=== PATIENT | female | born 1990 | race Caucasian/White ===

== ENCOUNTER 2020-10-05 17:10 | Observation (INO) | payer BC, SELFPAY ==
[2020-10-05] VITALS (31 sets, daily range): BP systolic 111–116; BP diastolic 53–55; PULSE 102–134; TEMP 36.6–37.4; O2SAT 97–100; BMI 25.4
--- NOTE | 2020-10-05 17:10 | OBADM ---
This patient, Brittney Obrien, admitted to the OB room Labor/Delivery/Recovery 110 for observation. Patient/family oriented to hospital policies and general routines including ID bracelet, bed and alarms, visiting hours, pain management, procedures, bathroom and other care routines, personal items, smoking policy, room service/diet, and visiting hours. Patient/Family are encouraged to report perceived risks to care and to ask questions if they do not understand what they are told or what they should do.
--- NOTE | 2020-10-05 17:29 | PC.NURSE ---
Addendum entered by Tariq Perez RN 10/05/20 17:41: time of phone call was [phone] Original Note: Updated Dr. Canada on patient arrival to OB unit for emergency department with complaint of pressure and possible bag of membranes out of vagina while voiding. Patient states membranes are not longer out of vagina. Patient reports pressure that was resolved after voiding. VSS. FHT 140's via doppler. No contractions noted via toco monitor or per patient. Abdomen palpates soft. Order for SVE given.
--- NOTE | 2020-10-05 17:29 | PC.NURSE ---
Dr. Canada notified of SVE 4-5/thin. No present parts noted. No contractions noted via TOCO or per patient. Dr. Canada coming in.
--- NOTE | 2020-10-05 19:33 | PM.IMHP ---
H&P: HPI History of Present Illness Date/Time: 10/05/20 19:33 Chief complaint: Bulging Narrative: Brittney Obrien is a 29 year old female at 19w1d who presents with previable cervical dilation. Pt reports that she felt pressure while trying to have a bowel movement. She looked down and noted a clear sac protruding from the vaginal introitus. Pt immediately presented to the hospital. She denies any contractions. This is an IVF with embryo transfer on 06/12/20. Pt's is complicated by history of delivery at 26w from cervical insufficiency that resulted in a neonatall demise. Pt denies any abnormal vaginal discharge, dysuria, or bleeding. Review of Systems Constitutional: Constitutional: Reports no additional constitutional complaints Eyes: Eyes: Reports no additional eye complaints Cardiovascular: Cardiovascular: Reports no additional cardiovascular complaints Respiratory: Respiratory: Reports no additional respiratory complaints Gastrointestinal: Gastrointestinal: Reports no additional gastrointestinal complaints Genitourinary: Genitourinary: Reports as per HPI Musculoskeletal: Musculoskeletal: Reports no additional musculoskeletal complaints Psychiatric: Psychiatric: Reports no additional psychiatric complaints [facility] Family History Family History (Updated 04/03/15 @ 15:33 by DOCTOR UNKNOWN) Other Diabetes mellitus Social History Social History Smoking status: Never smoker Alcohol intake: current Meds Home Medications and Allergies Home Medications Medication Instructions Recorded Confirmed Type aspirin [Adult Low Dose Aspirin] 81 mg PO DAILY 10/05/20 10/05/20 History prenat.vits,bernardo,[id number] 1 tablet PO DAILY 10/05/20 10/05/20 History [ Vitamin] progesterone micronized 200 mg PO DAILY 10/05/20 10/05/20 History Allergies Allergy/AdvReac Type Severity Reaction Status Date / Time nifedipine Allergy Unknown Verified 04/03/15 15:41 Vital Signs Vital Signs - 24 hr 10/05/20 17:11 10/05/20 17:31 10/05/20 17:33 Temperature 36.6 C Pulse Rate 116 H Blood Pressure 111/55 L Pulse Oximetry 100 10/05/20 17:38 10/05/20 17:43 10/05/20 17:48 Temperature Pulse Rate Blood Pressure Pulse Oximetry 100 99 100 10/05/20 17:53 10/05/20 17:58 10/05/20 18:03 Temperature Pulse Rate Blood Pressure Pulse Oximetry 100 100 98 10/05/20 18:08 10/05/20 18:13 10/05/20 18:18 Temperature Pulse Rate Blood Pressure Pulse Oximetry 100 100 100 10/05/20 18:23 10/05/20 18:28 10/05/20 18:33 Temperature Pulse Rate Blood Pressure Pulse Oximetry 99 98 100 10/05/20 18:38 10/05/20 18:43 10/05/20 18:48 Temperature Pulse Rate Blood Pressure Pulse Oximetry 100 99 99 10/05/20 18:53 10/05/20 18:58 10/05/20 19:03 Temperature Pulse Rate Blood Pressure Pulse Oximetry 99 100 100 10/05/20 19:08 10/05/20 19:13 10/05/20 19:18 Temperature Pulse Rate Blood Pressure Pulse Oximetry 99 100 100 Exam Const: General: comfortable and anxious Nutritional Appearance: average body habitus Orientation/consciousness: patient oriented x3 Limitations: no limitations HENMT: Head: normal to inspection Eyes: General: appearance normal, both eyes and all related structures Neck: Neck: normal visual inspection Chest: Chest palpation & inspection: normal inspection of the chest Resp: Effort & Inspection: normal respiratory effort and able to speak in complete sentences Auscultation: clear to auscultation bilaterally Cardio: Rate: regular rate Rhythm: regular rhythm GI: Inspection: normal to inspection GI Palp: No abdominal tenderness and No Rebound tenderness present Other: Gravid, fundal height equal to dates : External Female Exam: normal external appearance OB/external & speculum: external exam normal and Cervical os open; no bleeding Manual OB Exam: dila
[2020-10-05] MEDS: AMPICILLIN 2 GM/NS 100 ML 2 GM/100 ML BAG IVPB (19:39)
[2020-10-05] MEDS: AZITHROMYCIN 250 MG TABLET 1000 MG PO (19:48)
[2020-10-05] MEDS: INDOMETHACIN 50 MG SUPP.RECT 100 MG RECTAL (19:50)
--- NOTE | 2020-10-16 08:15 | PM.OBTRLD ---
OB - Triage/Final Diagnosis Visit Information Date of evaluation: 10/05/20 Reason for evaluation: other (cervical insufficienty, cervical dilation )
== END 2020-10-05 20:20 | disposition other institution (70) ==
LOC: ANHLDR 10-08 12:32
PROVIDERS: Admitting Provider Student in an Organized Health Care Education/Training Program; PCP Obstetrics & Gynecology; Visit Provider Student in an Organized Health Care Education/Training Program
DX: O09.892 Supervision of other high risk pregnancies, second trimester (principal); O34.32 Maternal care for cervical incompetence, second trimester; Z3A.00 Weeks of gestation of pregnancy not specified; O09.819 Supervision of pregnancy resulting from assisted reproductive technology, unspecified trimester; Z87.59 Personal history of other complications of pregnancy, childbirth and the puerperium
CPT/HCPCS: 96365; A9270; G0378; G0379; J0290

== ENCOUNTER 2020-10-17 18:35 | Inpatient (IN) | payer BC, SELFPAY ==
[2020-10-17] VITALS (13 sets, daily range): BP systolic 98–123; BP diastolic 56–67; PULSE 101–129; TEMP 36.6; BMI 25.0
[2020-10-17] MEDS: fentaNYL CITRATE INJ (*CRX) 100 MCG/2 ML VIAL 50 MCG IV PUSH (19:15)
[2020-10-17] MEDS: LACTATED RINGERS 1,000 ML 100 ML IV CONT (19:15)
--- NOTE | 2020-10-17 19:29 | PM.IMHP ---
H&P: HPI History of Present Illness Date/Time: 10/17/20 19:29 Chief complaint: Contractions Narrative: Brittney Obrien is a 29 year old female at 21w0d who presents in labor. Pt has had known cervical incompetence. She initially presented at 19w1d and was found to be 4-5cm dilated with hour glassing membranes to the introitus. Pt was transferred to [place] for possible rescue cerclage. Pt remained stable at [place] and was noted to be ruptured at attempt to place cerclage. The procedure was then aborted and expectant management was resumed. Pt reports she started having contractions this evening. She reports increased rectal pressure and bleeding. Review of Systems Cardiovascular: Cardiovascular: Denies chest pain, Denies leg edema, Denies palpitations, Denies dyspnea and Denies dyspnea on exertion Respiratory: Respiratory: Denies cough, Denies dyspnea and Denies dyspnea on exertion Gastrointestinal: Gastrointestinal: Denies abdominal pain, Denies constipation, Denies diarrhea, Denies nausea and Denies vomiting Genitourinary: Genitourinary: Denies hematuria, Denies urinary frequency, Denies dysuria, Denies pelvic pain, Denies urinary incontinence and Denies vaginal discharge Neurologic: Reports system reviewed and no additional complaints, except as documented Psychiatric: Psychiatric: Reports no additional psychiatric complaints Endocrine: Endocrine: Denies palpitations [facility] Family History Family History (Updated 04/03/15 @ 15:33 by DOCTOR UNKNOWN) Other Diabetes mellitus Social History Social History Smoking status: Never smoker Alcohol intake: current Meds Home Medications and Allergies Home Medications Medication Instructions Recorded Confirmed Type aspirin 81 mg PO DAILY 10/05/20 10/05/20 History prenat.vits,bernardo,[id number] 1 tablet PO DAILY 10/05/20 10/05/20 History progesterone micronized 200 mg PO DAILY 10/05/20 10/05/20 History Allergies Allergy/AdvReac Type Severity Reaction Status Date / Time nifedipine Allergy Unknown Verified 04/03/15 15:41 Exam Const: General: anxious Eyes: EOM: EOMs intact bilaterally Neck: Neck: supple Thyroid: thyroid normal Chest: Breast/axilla inspection: normal inspection of the breasts Breast/axilla palpation: normal palpation of the breasts, normal palpation of the axillae and no axillary lymphadenopathy Resp: Effort & Inspection: normal respiratory effort Auscultation: clear to auscultation bilaterally Cardio: Rate: regular rate Rhythm: regular rhythm GI: Inspection: non-distended GI Palp: Yes Soft to palpation, No Tenderness to palpation present (GI) and No Guarding due to palpation present (GI) Auscultation: normal bowel sounds : External Female Exam: normal external appearance Speculum Exam - Vagina: normal vaginal discharge and vaginal bleeding Speculum Exam - Cervix: nontender OB/external & speculum: vaginal bleeding Manual OB Exam: dilated and other (fetus noted in the vagina with only the head in utero) Skin: General skin exam: normal color and no rashes or lesions noted Neuro: Cognition (Neuro): normal cognition Speech: normal speech Extrem: General: normal to inspection and no edema Psych: Mental Status: mental status grossly normal Affect: normal affect Assessment and Plan Assessment and plan (1) History of delivery, currently in second trimester: Code(s): O09.892 - Supervision of other high risk pregnancies, second trimester Status: Acute Assessment and Plan: previous delivery at 26w secondary to cervical incompetence resulting in demise (2) Cervical insufficiency during in second trimester, antepartum: Code(s): O34.32 - Maternal care for cervical incompetence, second trimester Status: Acute Assessment and Plan: pt dx with cervical insufficiency at 19w1d presents today with contractions and fetus i
[2020-10-17] MEDS: OXYTOCIN 30 UNITS/NS 500 ML 30 UNITS/500 ML BAG 999 UNITS IV CONT (20:01)
[2020-10-17 20:11] LABS: Basophils Percent Auto 0.1 % (0.2-1.2); Eosinophils Percent Auto 0.1 % (0-4.4); Hemoglobin 10.5 g/dL (12.0-15.0); Immature Granulocyte Percent A 0.6 % (0-0.5); Lymphocytes Absolute Auto 1.94 K/mm3 (0.9-3.2); Lymphocytes Percent Auto 12.1 % (18.3-44.2); Mean Corpuscular HGB Conc 33.9 g/dl (32-36); Mean Corpuscular Volume 88.6 fl (80-100); Mean Platelet Volume 9.7 fl (7.4-10.4); Monocytes Absolute Auto 0.8 K/mm3 (0.1-0.6); Monocytes Percent Auto 5.1 % (2.6-8.5); Neutrophils Absolute Auto 13.1 K/mm3 (1.3-6.7); Platelet Count Result 323 k/mm3 (150-375); Red Cell Distribution Width 12.4 % (11.5-14.5)
--- NOTE | 2020-10-17 20:12 | P.PCNOB_ITS ---
OB - Delivery Note Procedure Procedure: Patient pushed for a spontaneous vaginal delivery. The fetus was delivered en caul along with the placenta.The fetus was noted to have minimal movement upon delivery. The fetus was placed in a blanket. The membranes were removed and the cord was clamped and cut. The perineum was inspected and there were no lacerations noted. The uterus was noted to be boggy. IV pitocin was started as well as bimanual massage. The uterus was noted to be firm with good hemostasis after inteventions. The fetus was wrapped in a receiving blanket and placed on the mother's chest. The fetus was noted to have a pulse at that time. The mother and father were grieving appropriately and condolences were given. events: Labor < 37 Weeks and Premature Rupture of Membrane Intrapartal events: None Induction method: none Delivery monitor: none Route of delivery: Episiotomy description: None Laceration Description: None Specimen: Yes (Placenta) Quantitative Blood Loss: 250 Anesthesia type: None Disposition: floor () Complications: No immediate complications [facility] Date of : 10/17/20 Time of : 19:57 Weeks of gestation at delivery: 21 Infant gender: Male presentation: breech Placenta delivery description: Spontaneous score one minute: 2 score five minutes: 1
[2020-10-18 00:58] VITALS: BP 96/51; PULSE 99
--- NOTE | 2020-10-18 01:15 | PC.NURSE ---
Chief Ophthalmic Technician called back. Information given. Baby can be released to home. Baby to nursury at parents request. Unsure if they will want to hold baby again. Baby placed on cuddle cot.
--- NOTE | 2020-10-18 02:30 | PC.NURSE ---
Addendum entered by Dawood Rosales RN 10/18/20 02:31: NOTE SHOULD BE TIMES 1830. Original Note: SROM 10/07 at 19 weeks. Has had parts in vagina past week. Arrived having contractions which have increased in intensity past hour. Fetus noted to be partially in vagina on arrival.
--- NOTE | 2020-10-18 02:32 | PC.NURSE ---
Anjelica Kirk RN, Share Coordinator notified of pt admission and delivery.
--- NOTE | 2020-10-18 05:00 | PC.NURSE ---
Jeremias Kirk in dept. from [facility] will come to see pt when she wakes this AM. Pt does not want baby to have autopsy. Pt states wants baby to go to home for cremation. Pt declines any path review in lab. Pt states desires to use home here in [place]. [facility] home notified.
[2020-10-18 05:04] VITALS: BP 93/59; PULSE 88
[2020-10-18 05:05] LABS: Basophils Percent Auto 0.2 % (0.2-1.2); Eosinophils Percent Auto 0.2 % (0-4.4); Hematocrit 25.8 % (37.0-47.0); Hemoglobin 8.8 g/dL (12.0-15.0); Immature Granulocyte Absolute 0.04 K/mm3 (0.00-0.031); Immature Granulocyte Percent A 0.3 % (0-0.5); Lymphocytes Absolute Auto 2.08 K/mm3 (0.9-3.2); Lymphocytes Percent Auto 15.3 % (18.3-44.2); Mean Corpuscular HGB Conc 34.1 g/dl (32-36); Mean Corpuscular Hemoglobin 30.3 pg (26-34); Mean Platelet Volume 9.5 fl (7.4-10.4); Monocytes Absolute Auto 0.6 K/mm3 (0.1-0.6); Monocytes Percent Auto 4.5 % (2.6-8.5); Neutrophils Absolute Auto 10.8 K/mm3 (1.3-6.7); Neutrophils Percent Auto 79.5 % (45.5-73.1); Platelet Count Result 254 k/mm3 (150-375); Red Cell Distribution Width 12.4 % (11.5-14.5); White Blood Count 13.6 K/mm3 (4.5-10.0)
[2020-10-18 05:30] VITALS: TEMP 36.4
--- NOTE | 2020-10-18 05:45 | PC.NURSE ---
Pt has been resting quietly. Denies any pain. Baby remains in nursery on cuddle cot. Pt aware. Sig other at bedside. Both pt and significant other are tearful at times. Advised pt and significant other to call if they need anything or would like baby to come back to room.
--- NOTE | 2020-10-18 07:11 | PM.DS ---
DS: Admitting Diagnosis Admitting Diagnosis Admitting Diagnosis: Contractions 21 weeks pre term prone prolonged DS: Summary Time Spent with Patient Time attestation: Total time spent providing and/or coordinating discharge services: The patient was admitted at 21 weeks with known rupture of membranes and feet had been exposed in the vagina. heart tones were present she progressed rapidly and delivered a 21 week fetus. Her hospital course was unremarkable. She remained afebrile she was voiding without difficulty passing gas and eating regular diet. She remained afebrile. Her condition upon discharge was stable Exam Const: General: no acute distress Eyes: General: appearance normal, both eyes and all related structures Neck: Neck: supple and no JVD Thyroid: thyroid normal Resp: Effort & Inspection: normal respiratory effort Auscultation: clear to auscultation bilaterally Cardio: Rate: regular rate Rhythm: regular rhythm GI: Inspection: non-distended GI Palp: Yes Soft to palpation, No Tenderness to palpation present (GI) and No Guarding due to palpation present (GI) Auscultation: normal bowel sounds : General: Yes bladder normal to palpation External Female Exam: normal external appearance Speculum Exam - Vagina: normal vaginal discharge and No vaginal bleeding Speculum Exam - Cervix: nontender Bimanual exam- vagina & uterus: bladder normal to palpation and No Cervical tenderness present OB/external & speculum: No vaginal bleeding Skin: General skin exam: no rashes or lesions noted Extrem: General: normal to inspection and no edema Psych: Mental Status: mental status grossly normal Affect: normal affect DS: Data Data Completed and Pending Pending studies at discharge: Pending at discharge 10/17/20 19:57 Surgical [PTH] Routine Labs on day of discharge: Labs from last 24 hours 10/18/20 10/17/20 10/17/20 04:57 19:47 19:47 WBC 13.6 H 16.0 H RBC 2.90 L 3.50 L Hgb 8.8 L 10.5 L Hct 25.8 L 31.0 L MCV 89.0 88.6 MCH 30.3 30.0 MCHC 34.1 33.9 RDW 12.4 12.4 Plt Count 254 323 MPV 9.5 9.7 Immature Gran % (Auto) 0.3 0.6 H Neut % (Auto) 79.5 H 82.0 H Lymph % (Auto) 15.3 L 12.1 L Wilkes % (Auto) 4.5 5.1 Eos % (Auto) 0.2 0.1 Baso % (Auto) 0.2 0.1 L Lymph # (Auto) 2.08 1.94 Wilkes # (Auto) 0.6 0.8 H Eos # (Auto) 0.0 0.0 Baso # (Auto) 0.0 0.0 Abs Immat Gran (auto) 0.04 H 0.10 H Absolute Neuts (auto) 10.8 H 13.1 H Absolute Nucleated RBC 0.0 0.0 Nucleated RBC % 0.0 0.0 Blood Type A Positive Antibody Screen Negative Discharge Plan Discharge Attending physician on discharge: Talon Gallardo Discharging Clinician: Talon Gallardo Patient Disposition: Home, Self-Care Activity: may shower, no straining and pelvic rest Diet: heart healthy Wound Care Instructions: follow printed instructions Patient Instructions: Antibiotic Form Stand Alone Forms: General Discharge Information Follow-up/Referrals: Talon Gallardo MD [Physician] - Discharge Medications: Continued progesterone micronized 200 mg capsule 200 mg PO DAILY RF: 0 aspirin 81 mg Tablet 81 mg PO DAILY RF: 0 prenat.vits,bernardo,[id number] Tablet 1 tablet PO DAILY RF: 0 Date of admission: 10/17/20 18:36 Primary Care Provider: PHYSICIAN,FOOD TESTER Admitting Provider: Talon Gallardo Attending physician on admission: Talon Gallardo Condition: Stable
--- NOTE | 2020-10-18 07:15 | PM.OBPNVD ---
OB - PN: Subj Subjective Date/time seen: 10/18/20 07:15 Patient comments: no complaints and pain well controlled OB - PN: Obj Data Labs CBC & Chem 7: 10/18/20 04:57 Labs: Laboratory Results - last 24 hr 10/17/20 10/17/20 10/18/20 19:47 19:47 04:57 WBC 16.0 H 13.6 H RBC 3.50 L 2.90 L Hgb 10.5 L 8.8 L Hct 31.0 L 25.8 L MCV 88.6 89.0 MCH 30.0 30.3 MCHC 33.9 34.1 RDW 12.4 12.4 Plt Count 323 254 MPV 9.7 9.5 Immature Gran % (Auto) 0.6 H 0.3 Neut % (Auto) 82.0 H 79.5 H Lymph % (Auto) 12.1 L 15.3 L [place] % (Auto) 5.1 4.5 Eos % (Auto) 0.1 0.2 Baso % (Auto) 0.1 L 0.2 Lymph # (Auto) 1.94 2.08 [place] # (Auto) 0.8 H 0.6 Eos # (Auto) 0.0 0.0 Baso # (Auto) 0.0 0.0 Abs Immat Gran (auto) 0.10 H 0.04 H Absolute Neuts (auto) 13.1 H 10.8 H Absolute Nucleated RBC 0.0 0.0 Nucleated RBC % 0.0 0.0 Blood Type A Positive Antibody Screen Negative OB - PN A/P Plan day: 1 Plan: routine care, discharge home and follow up 6 weeks (2 weeks) Time Spent With Patient Time: Total time spent is greater than 50% in coordination of care (as documented) at patient's floor/unit and/or counseling patient: Time with patient: less than 15 minutes Review of Systems Review of Systems: All systems reviewed & are unremarkable except as noted in HPI and below Exam Const: General: no acute distress Eyes: General: appearance normal, both eyes and all related structures Neck: Neck: supple and no JVD Thyroid: thyroid normal Resp: Effort & Inspection: normal respiratory effort Auscultation: clear to auscultation bilaterally Cardio: Rate: regular rate Rhythm: regular rhythm GI: Inspection: non-distended GI Palp: Yes Soft to palpation, No Tenderness to palpation present (GI) and No Guarding due to palpation present (GI) Auscultation: normal bowel sounds : General: Yes bladder normal to palpation External Female Exam: normal external appearance Speculum Exam - Vagina: normal vaginal discharge and No vaginal bleeding Speculum Exam - Cervix: nontender Bimanual exam- vagina & uterus: bladder normal to palpation and No Cervical tenderness present OB/external & speculum: No vaginal bleeding Skin: General skin exam: no rashes or lesions noted Extrem: General: normal to inspection and no edema Psych: Mental Status: mental status grossly normal Affect: normal affect
[2020-10-18 08:03] VITALS: BP 98/52; PULSE 91; RESP 16; TEMP 36.2
== END 2020-10-18 09:50 | disposition home or self-care (01) | DRG 807 ==
PROVIDERS: Admitting Provider Student in an Organized Health Care Education/Training Program; Visit Provider Obstetrics & Gynecology
DX: O34.32 Maternal care for cervical incompetence, second trimester (principal); Z37.0 Single live birth; O42.912 Preterm premature rupture of membranes, unspecified as to length of time between rupture and onset of labor, second trimester; Z3A.21 21 weeks gestation of pregnancy; O32.1XX1 Maternal care for breech presentation, fetus 1
CPT/HCPCS: 36415; 85025; 86850; 86900; 86901; 88305; 88307; J2590; J3010; J7120

== ENCOUNTER 2021-07-25 15:32 | Outpatient (CLI) | payer BC, SELFPAY ==
[2021-07-25 16:56] LABS: SARS-CoV-2 RNA PCR Negative (Negative)
== END 2021-07-25 15:33 | disposition home or self-care (01) ==
LOC: CHSLAB 15:35
PROVIDERS: PCP Family Medicine; Visit Provider Family Medicine
DX: J00 Acute nasopharyngitis [common cold] (principal); Z20.822 Contact with and (suspected) exposure to COVID-19
CPT/HCPCS: 87081; 87880; C9803; U0003; U0005

== ENCOUNTER 2022-04-02 14:24 | Outpatient (CLI) | payer BC, SELFPAY ==
--- NOTE | ~2022-04-02 | XR_ITS ---
EXAMINATION: XR abdomen obstructive series DATE: 04/02/2022 14:52 INDICATION: Abdominal gaseous distention with diarrhea TECHNIQUE: Supine and upright views of the abdomen. FINDINGS: Comparison to 03/29/2015 The visualized lung parenchyma is normal.. There is a nonobstructive bowel gas pattern. Gas and stool are seen throughout the colon to the level of the rectum. There is no free air. There are cholecyst ectomy clips. IMPRESSION: 1. No acute abdominal abnormality. Reviewed, dictated and finalized at location B.
== END 2022-04-02 14:25 | disposition home or self-care (01) ==
LOC: CHSLAB 14:27 → CHSIMG 14:29
PROVIDERS: PCP Family Medicine; Visit Provider Family Medicine
DX: R14.0 Abdominal distension (gaseous) (principal)
CPT/HCPCS: 74019

== ENCOUNTER 2024-02-04 12:33 | Outpatient (CLI) | payer OTHER, SELFPAY ==
[2024-02-04 13:53] LABS: Basophils Absolute Auto 0.01 K/mm3 (0.00-0.10); Basophils Percent Auto 0.1 % (0.0-1.0); Eosinophils Absolute Auto 0.05 K/mm3 (0.02-0.50); Eosinophils Percent Auto 0.6 % (1.0-6.0); Hematocrit 29.2 % (35.0-49.0); Hemoglobin 9.9 g/dL (12.0-15.0); Immature Granulocyte Absolute 0.03 K/mm3 (0.00-0.00); Immature Granulocyte Percent A 0.3 % (0.0-0.0); Lymphocytes Absolute Auto 1.46 K/mm3 (1.10-4.50); Lymphocytes Percent Auto 16.8 % (18.0-42.0); Mean Corpuscular HGB Conc 33.9 g/dL (32-36); Mean Corpuscular Hemoglobin 29.9 pg (27.0-31.0); Mean Corpuscular Volume 88.2 fL (78.0-102.0); Mean Platelet Volume 9.1 fl (9.2-11.8); Monocytes Absolute Auto 0.34 K/mm3 (0.10-0.90); Monocytes Percent Auto 3.9 % (2.0-11.0); Neutrophils Percent Auto 78.3 % (50.0-70.0); Platelet Count Result 230 K/mm3 (150-420); Red Blood Count 3.31 M/mm3 (4.20-5.40); White Blood Count 8.7 K/mm3 (4.8-10.8)
[2024-02-04 14:50] LABS: HIV 1 P24 AG Negative (Negative); HIV 1/2 AB Negative (Negative)
[2024-02-04 14:55] LABS: Glucose 1 Hour PP 50gm Dose 154 mg/dL (70-130)
== END 2024-02-04 12:34 | disposition home or self-care (01) ==
LOC: CHSLAB 12:36
PROVIDERS: PCP Family Medicine; Visit Provider Advanced Practice Midwife
DX: Z36.9 Encounter for antenatal screening, unspecified (principal)
CPT/HCPCS: 36415; 82947; 85025; 86780; 86850; 87806

== ENCOUNTER 2024-02-18 08:06 | Outpatient (CLI) | payer OTHER, SELFPAY ==
[2024-02-18 08:51] LABS: Glucose Fasting Gestational 88 mg/dL (>/=95)
[2024-02-18 09:55] LABS: Glucose 1 Hour Gest 156 mg/dL (70-130)
[2024-02-18 10:53] LABS: Glucose 2 Hour Gest 186 mg/dL (<155)
[2024-02-18 12:05] LABS: Glucose 3 Hour Gest 77 mg/dL (>/=140)
== END 2024-02-18 08:07 | disposition home or self-care (01) ==
PROVIDERS: PCP Family Medicine; Visit Provider Advanced Practice Midwife
DX: O99.810 Abnormal glucose complicating pregnancy (principal)
CPT/HCPCS: 36415; 82951; 82952